=== PATIENT | male | born 1960 | race Caucasian/White ===

== ENCOUNTER 2016-12-01 10:06 | Outpatient (CLI) | payer MEDICARE ==
[2016-12-01 11:35] LABS: #Basophils 0.1 thou/uL (0.0-0.2); #Eosinphils 0.3 thou/uL (0.0-0.7); #Lymphocytes 2.8 thou/uL (1.20-3.40); #Monocytes 0.7 thou/uL (0.11-0.59); #Neutrophils 7.4 thou/uL (1.40-6.50); %Eosinophils 2.5 % (0.0-10.0); %Lymphocytes 25.1 % (21.0-51.0); %Neutrophils 65.3 % (42.0-75.0); Mean Corpuscular HGB CONC 32.9 g/dL (32.0-36.0); Mean Corpuscular Hemoglobin 27.8 pg (27.0-31.0); Mean Corpuscular Volume 84.4 fl (80.0-94.0); Mean Platelet Volume 8.3 fL (7.4-10.4); Platelet Count 272 thou/uL (130-400); RBC Distribution Width 13.1 % (11.5-14.5); Red Blood Cell (RBC) Count 6.11 mill/uL (4.70-6.10); White Blood Cell (WBC) Count 11.3 thou/uL (4.8-10.8)
[2016-12-01 11:44] LABS: ALT (SGPT) 11 U/L (0-55); AST (SGOT) 11 U/L (5-34); Albumin 4.1 g/dL (3.5-5.0); Alkaline Phosphatase 77 U/L (40-150); Anion Gap 14 mmol/L (10-20); BUN (Urea Nitrogen) 20 mg/dL (8.4-25.7); Bilirubin, Total 0.5 mg/dL (0.2-1.2); Calc. Creatinine Clearance 0 mL/min (70-130); Calcium 9.9 mg/dL (7.8-10.44); Carbon Dioxide 25 mmol/L (22-29); Cardiac Risk 5.9 (Less than 4.5); Chloride 101 mmol/L (98-107); Cholesterol 142 mg/dL (< 200 Desired); Estimated GFR-MDRD 45; Globulin 3.6 g/dL (2.4-3.5); Glucose 210 mg/dL (70-105); HDL Cholesterol 24 mg/dL (>60 Neg Risk); LDL Cholesterol, Calculated 75 mg/dL; Potassium 4.8 mmol/L (3.5-5.1); Protein, Total 7.7 g/dL (6.0-8.3); Sodium 135 mmol/L (136-145); Triglycerides 217 mg/dL (Less than 150)
[2016-12-01 11:50] LABS: Hemoglobin A1c 7.5 % (4.0-6.0)
== END 2016-12-01 10:07 | disposition home or self-care (01) ==
LOC: HPCALD 10:06
PROVIDERS: ATTEND Family Medicine
DX: Z12.5 Encounter for screening for malignant neoplasm of prostate (principal); Z13.6 Encounter for screening for cardiovascular disorders; E11.49 Type 2 diabetes mellitus with other diabetic neurological complication; I10 Essential (primary) hypertension
CPT/HCPCS: 36415; 80053; 80061; 83036; 85025; G0103

== ENCOUNTER 2017-03-02 10:00 | Outpatient (CLI) | payer MEDICARE ==
[2017-03-02 10:52] LABS: ALT (SGPT) 18 U/L (8-55); AST (SGOT) 22 U/L (5-34); Albumin 4.2 g/dL (3.5-5.0); Alkaline Phosphatase 69 U/L (40-150); Anion Gap 15 mmol/L (10-20); BUN (Urea Nitrogen) 25 mg/dL (8.4-25.7); Bilirubin, Total 0.5 mg/dL (0.2-1.2); Calc. Creatinine Clearance 0 mL/min (70-130); Calcium 9.4 mg/dL (7.8-10.44); Carbon Dioxide 24 mmol/L (22-29); Chloride 102 mmol/L (98-107); Estimated GFR-MDRD 49; Globulin 3.6 g/dL (2.4-3.5); Glucose 148 mg/dL (70-105); Potassium 5.3 mmol/L (3.5-5.1); Protein, Total 7.8 g/dL (6.0-8.3); Sodium 136 mmol/L (136-145)
[2017-03-02 11:14] LABS: #Basophils 0.2 thou/uL (0.0-0.2); #Eosinphils 0.4 thou/uL (0.0-0.7); #Lymphocytes 3.8 thou/uL (1.20-3.40); #Monocytes 0.8 thou/uL (0.11-0.59); #Neutrophils 7.4 thou/uL (1.40-6.50); %Basophils 1.2 % (0.0-1.0); %Eosinophils 3.2 % (0.0-10.0); %Lymphocytes 30.3 % (21.0-51.0); %Monocytes 6.2 % (0.0-10.0); Hemoglobin 16.6 g/dL (14.0-18.0); Mean Corpuscular HGB CONC 32.6 g/dL (32.0-36.0); Mean Corpuscular Hemoglobin 26.9 pg (27.0-31.0); Mean Corpuscular Volume 82.4 fl (80.0-94.0); Mean Platelet Volume 8.4 fL (7.4-10.4); Platelet Count 237 thou/uL (130-400); RBC Distribution Width 13.5 % (11.5-14.5); Red Blood Cell (RBC) Count 6.19 mill/uL (4.70-6.10); White Blood Cell (WBC) Count 12.5 thou/uL (4.8-10.8)
[2017-03-02 11:36] LABS: Hemoglobin A1c 7.9 % (4.0-6.0)
== END 2017-03-02 10:01 | disposition home or self-care (01) ==
LOC: HPCALD 10:00
PROVIDERS: ATTEND Family Medicine
DX: E11.49 Type 2 diabetes mellitus with other diabetic neurological complication (principal); I10 Essential (primary) hypertension
CPT/HCPCS: 36415; 80053; 83036; 85025

== ENCOUNTER 2018-01-22 06:51 | Inpatient (IN) | payer MEDICARE ==
[2018-01-22] MEDS ORDERED: Sodium Chloride 0.9% 100 ML ONE (07:22)
[2018-01-22] MEDS ORDERED: Piperacillin/Tazobactam 3.375 GM VIAL ONE (07:22)
[2018-01-22] MEDS ORDERED: Fentanyl 100 MCG/2 ML VIAL ONE (08:00)
[2018-01-22] MEDS ORDERED: Ketorolac Tromethamine 30 MG/ML VIAL ONE (08:00)
[2018-01-22 08:06] LABS: Hemoglobin 14.6 g/dL (14.0-18.0); Mean Corpuscular HGB CONC 34.8 g/dL (32.0-36.0); Mean Corpuscular Hemoglobin 27.1 pg (27.0-31.0); Mean Corpuscular Volume 77.7 fl (80.0-94.0); Mean Platelet Volume 7.8 fL (7.4-10.4); Platelet Count 232 thou/uL (130-400); RBC Distribution Width 12.3 % (11.5-14.5); Red Blood Cell (RBC) Count 5.39 mill/uL (4.70-6.10)
[2018-01-22 08:09] LABS: ALT (SGPT) 19 U/L (8-55); AST (SGOT) 15 U/L (5-34); Alkaline Phosphatase 59 U/L (40-150); Anion Gap 15 mmol/L (10-20); BUN (Urea Nitrogen) 22 mg/dL (8.4-25.7); Bilirubin, Total 1.1 mg/dL (0.2-1.2); Calc. Creatinine Clearance 0 mL/min (70-130); Calcium 9.5 mg/dL (7.8-10.44); Carbon Dioxide 23 mmol/L (22-29); Chloride 97 mmol/L (98-107); Estimated GFR-MDRD 38; Globulin 3.8 g/dL (2.4-3.5); Glucose 306 mg/dL (70-105); Potassium 4.2 mmol/L (3.5-5.1); Protein, Total 7.8 g/dL (6.0-8.3); Sodium 131 mmol/L (136-145)
[2018-01-22 08:12] LABS: Eosinophils 1 % (0-10); Lymphocytes 9 % (21-51); MDiff Complete? YES; Monocytes 7 % (0-10); Neutrophil 83 % (42-75); PLT Morphology Comment Appears Adequate; RBC Morphology Normal
[2018-01-22 10:56] VITALS: BMI 29.5
[2018-01-22] MEDS: Sodium Chloride 0.9% 1,000 ML IV SCH ×2 (11:09→18:13)
[2018-01-22] MEDS ORDERED: HYDROcodone/Acetaminophen 5/325 mg Tablet PO PRN (11:09)
[2018-01-22] MEDS ORDERED: Ondansetron ODT 4 MG TAB SL PRN (11:09)
[2018-01-22] MEDS ORDERED: Ondansetron HCl/PF 4 MG/2 ML Vial IVP PRN (11:09)
--- NOTE | 2018-01-22 11:27 | RAD ---
RIGHT FOOT THREE VIEWS: Date: 01-22-18 Comparison: 04-22-11 FINDINGS: There has been an old amputation of the great toe down to the level of the mid first metatarsal. The remaining first metatarsal shows no abnormality of concern. There are some nonarticular erosive mack es in particularly the second and fifth metatarsal heads. As there is a little bit of sclerosis aroun d these areas, I doubt that they are acute. There is a little irregularity of the third metatarsal he ad in a similar fashion, but not enough to confidently diagnose acute osteomyelitis. There were no ot her areas of bony destruction. IMPRESSION: Erosive changes in the second and fifth metatarsal heads and to a lesser extent the third. More likel y longstanding than not, though it should be pointed out that plain film diagnosis of osteomyelitis i s a relatively late in the process possibility. Other imaging modalities would be needed if it is str ongly suspected. POS: HOME
[2018-01-22] MEDS ORDERED: Dextrose 5% in Water 1,000 ML IV PRN (11:55)
[2018-01-22] MEDS ORDERED: Dextrose 50% Abboject 50 ML SYRINGE SLOW IVP PRN (11:55)
[2018-01-22] MEDS: Piperacillin/Tazobactam 3.375 GM in Sodium Chloride 0.9% 100 ML IVPB SCH ×2 (13:39→20:27)
[2018-01-22] MEDS: HumaLOG 300 UNITS/3 ML VIAL SC PRN ×2 (13:41→18:14)
[2018-01-22] MEDS: HYDROcodone/Acetaminophen 5/325 mg Tablet PO PRN ×2 (16:24→22:09)
--- NOTE | 2018-01-22 16:30 | HP ---
DATE OF ADMISSION: 01/22/2018 CHIEF COMPLAINT: Infection of right foot. HISTORY OF PRESENT ILLNESS: A 57-year-old male with poorly controlled diabetes presented to [facility] Emergency Department earlier today with complaints of developing swelling and erythema to his right foot as of yesterday, accompanied by chills; he denies having a fever. Upon inspection in the emergency room, an abrasion is noted to the plantar aspect of his right foot and subsequent lab evaluation revealing leukocytosis with white blood cell count of 22.0 with a left shift. The patient is unaware of how long he may have had this skin lesion secondary to the associated neuropathy he has from his diabetes. His most recent A1c in the clinical setting on 12/07/2017 was 10.8 at which time his insulin was increased and he was started on Victoza. In the emergency department, the patient was started on Zosyn empirically and intravenous fluids secondary to acute renal insufficiency. The patient denies having any significant pain at this time and feels to be in his usual state of health otherwise with no other new concerns. PAST MEDICAL HISTORY: Insulin-dependent type 2 diabetes mellitus with peripheral neuropathy, essential hypertension, hyperlipidemia, cataracts, gastroesophageal reflux disease. PAST SURGICAL HISTORY: Appendectomy, left and right great toes amputated in 2010, right hip fracture with right hip arthroplasty in 2013 and a prior knee surgery. SOCIAL HISTORY: The patient is a nonsmoker, but he does dip tobacco. Denies frequent ETOH use. Denies illicit drug use. ALLERGIES: No known drug allergies. FAMILY HISTORY: Noncontributory. CURRENT MEDICATIONS: Levemir 30 units b.i.d., Victoza 1.8 mg daily, omeprazole 40 mg p.o. daily, lisinopril/hydrochlorothiazide 20/12.5 mg p.o. daily, aspirin 81 mg p.o. daily, amlodipine 10 mg p.o. daily, metformin 1000 mg p.o. b.i.d. and glyburide 5 mg p.o. b.i.d. REVIEW OF SYSTEMS: General: Denies fever, complains of chills. Ear, Nose and Throat: Denies sore throat, congestion, and drainage. Cardiovascular: Denies chest pain or palpitations. Respiratory: Denies shortness of breath or cough. Gastrointestinal: Denies abdominal pain, nausea, vomiting, diarrhea or constipation. Genitourinary: Denies dysuria or hematuria. Musculoskeletal: Denies joint pain. Dermatologic: Complains of abrasion to the plantar aspect of right foot. Neurologic: Denies headache. LABORATORY DATA: White blood cell count of 22.0, H&H is 14.6 and 41.9, platelets 232. Sodium 131, potassium 4.2, BUN is 12, creatinine 1.87 with a GFR of 38, glucose 306. Lactic acid 1.5. Normal LFTs. IMAGING: Right foot x-ray showed erosive changes in the second and fifth metatarsal head and to a lesser extent, the third more likely longstanding, though it should be pointed out that plain film diagnosis of osteomyelitis is a relatively late in the process possibility. Other imaging modalities would be needed if it is strongly suspected. PHYSICAL EXAMINATION: VITAL SIGNS: Temperature is 98.3, pulse is 82, respiratory rate is 20, oxygen is 96% on room air, blood pressure is 128/79. GENERAL: The patient is alert and oriented, in no acute distress. FACE: No asymmetry. EYES: Conjunctivae are clear. Extraocular muscles are intact bilaterally. Cataracts bilaterally. HEENT: Within normal limits. Oral cavity has dry mucous membranes. NECK: Supple, full range of motion. No meningeal signs. CARDIOVASCULAR: Regular rate and rhythm, normal S1, S2. No murmurs, rubs or gallops. RESPIRATORY: Clear to auscultation bilaterally without wheezes, rales or rhonchi. GASTROINTESTINAL: Soft, nontender to palpation, no masses. EXTREMITIES: Right foot, status post great toe amputation; left foot, status post great toe amputation and second toe. It was approximately 3 cm vertical abrasion to the plantar aspect of the right foot anterior to the fifth toe. There is a peripheral IV to the right upper extremity. NEUROLOGIC: Nonfocal with cranial nerves II through XII grossly intact. He does have decreased sensation to bilateral feet. SKIN: There is erythema to the distal dorsum of the right foot with localized swelling and superficial warmth. ASSESSMENT AND PLAN: 1. Cellulitis of the right foot. Due to the x-ray findings, I have ordered an MRI to rule out osteomyelitis. He has been started on Zosyn empirically. Blood cultures and wound culture is pending. A repeat CBC is ordered for tomorrow. 2. Acute renal insufficiency. Patient has been started on normal saline at 150 mL an hour. We will continue this afternoon and overnight with plans to discontinue this tomorrow morning. I have held his metformin as well accordingly. 3. Insulin-dependent diabetes mellitus, poorly controlled. I have resumed his usual home medications other than the metformin and added a Humalog sliding scale. We will proceed with a consistent carbohydrate diet while he is here. We will have a.c. and at bedtime glucose checks. 4. Hypertension. The patient is hemodynamically stable with blood pressure at goal. We will resume his usual blood pressure medications. 5. Hyperlipidemia. We will add a stat patient's medication regimen. 6. Prophylaxis. We will continue patient's home proton pump inhibitor for gastrointestinal prophylaxis. MTDD
[2018-01-22] MEDS: glyBURIDE 5 MG TAB PO SCH (20:27)
[2018-01-22] MEDS: Pravastatin Sodium 20 MG TAB PO SCH (20:27)
[2018-01-22] MEDS: Levemir Flexpen 100 UNITS/ML PEN SC SCH (22:08)
[2018-01-23] MEDS: Sodium Chloride 0.9% 1,000 ML IV SCH ×2 (02:00→18:50)
[2018-01-23] MEDS: Piperacillin/Tazobactam 3.375 GM in Sodium Chloride 0.9% 100 ML IVPB SCH ×4 (02:01→20:20)
[2018-01-23] MEDS: HYDROcodone/Acetaminophen 5/325 mg Tablet PO PRN (05:01)
[2018-01-23 05:52] LABS: #Basophils 0.1 thou/uL (0.0-0.2); #Eosinphils 0.2 thou/uL (0.0-0.7); #Lymphocytes 2.4 thou/uL (1.20-3.40); #Monocytes 1.1 thou/uL (0.11-0.59); #Neutrophils 12.4 thou/uL (1.40-6.50); %Basophils 0.7 % (0.0-1.0); %Eosinophils 1.4 % (0.0-10.0); %Monocytes 6.8 % (0.0-10.0); %Neutrophils 76.1 % (42.0-75.0); Hemoglobin 11.7 g/dL (14.0-18.0); Mean Corpuscular HGB CONC 34.1 g/dL (32.0-36.0); Mean Corpuscular Hemoglobin 26.4 pg (27.0-31.0); Mean Corpuscular Volume 77.4 fl (80.0-94.0); Mean Platelet Volume 8.1 fL (7.4-10.4); Platelet Count 175 thou/uL (130-400); Red Blood Cell (RBC) Count 4.43 mill/uL (4.70-6.10); White Blood Cell (WBC) Count 16.2 thou/uL (4.8-10.8)
[2018-01-23 06:21] LABS: ALT (SGPT) 22 U/L (8-55); AST (SGOT) 20 U/L (5-34); Albumin 3.2 g/dL (3.5-5.0); Alkaline Phosphatase 62 U/L (40-150); Anion Gap 12 mmol/L (10-20); BUN (Urea Nitrogen) 22 mg/dL (8.4-25.7); Bilirubin, Total 1.1 mg/dL (0.2-1.2); Calc. Creatinine Clearance 80 mL/min (70-130); Calcium 8.2 mg/dL (7.8-10.44); Carbon Dioxide 22 mmol/L (22-29); Chloride 103 mmol/L (98-107); Estimated GFR-MDRD 47; Globulin 3.2 g/dL (2.4-3.5); Glucose 127 mg/dL (70-105); Potassium 3.9 mmol/L (3.5-5.1); Protein, Total 6.4 g/dL (6.0-8.3); Sodium 133 mmol/L (136-145)
[2018-01-23] MEDS: Hydrochlorothiazide 25 MG TAB PO SCH (08:27)
[2018-01-23] MEDS: Amlodipine 10 MG TAB PO SCH (08:27)
[2018-01-23] MEDS: Multivitamin W/ Minerals 1 TAB PO SCH (08:28)
[2018-01-23] MEDS: glyBURIDE 5 MG TAB PO SCH ×2 (08:29→20:20)
[2018-01-23] MEDS: Levemir Flexpen 100 UNITS/ML PEN SC SCH ×2 (08:32→20:23)
[2018-01-23] MEDS: Lisinopril 20 MG TAB PO SCH (08:32)
[2018-01-23] MEDS: Milk Of Magnesia 30 ML UDCUP PO PRN (11:36)
[2018-01-23] MEDS: HumaLOG 300 UNITS/3 ML VIAL SC PRN ×2 (12:42→17:28)
[2018-01-23] MEDS: Acetaminophen 325 MG TAB PO PRN (17:16)
[2018-01-23] MEDS: Pravastatin Sodium 20 MG TAB PO SCH (20:20)
[2018-01-24] MEDS: Piperacillin/Tazobactam 3.375 GM in Sodium Chloride 0.9% 100 ML IVPB SCH ×4 (02:04→22:44)
[2018-01-24 05:54] LABS: #Basophils 0.1 thou/uL (0.0-0.2); #Eosinphils 0.2 thou/uL (0.0-0.7); #Lymphocytes 2.1 thou/uL (1.20-3.40); #Monocytes 1.4 thou/uL (0.11-0.59); #Neutrophils 12.7 thou/uL (1.40-6.50); %Basophils 0.8 % (0.0-1.0); %Eosinophils 1.3 % (0.0-10.0); %Lymphocytes 12.9 % (21.0-51.0); %Monocytes 8.2 % (0.0-10.0); %Neutrophils 76.7 % (42.0-75.0); Hemoglobin 11.7 g/dL (14.0-18.0); Mean Corpuscular HGB CONC 35.2 g/dL (32.0-36.0); Mean Corpuscular Hemoglobin 27.1 pg (27.0-31.0); Mean Corpuscular Volume 76.9 fl (80.0-94.0); Mean Platelet Volume 7.6 fL (7.4-10.4); Platelet Count 203 thou/uL (130-400); Red Blood Cell (RBC) Count 4.33 mill/uL (4.70-6.10); White Blood Cell (WBC) Count 16.6 thou/uL (4.8-10.8)
[2018-01-24 06:11] LABS: ALT (SGPT) 31 U/L (8-55); AST (SGOT) 27 U/L (5-34); Albumin 3.1 g/dL (3.5-5.0); Alkaline Phosphatase 82 U/L (40-150); Anion Gap 14 mmol/L (10-20); BUN (Urea Nitrogen) 17 mg/dL (8.4-25.7); Bilirubin, Total 1.1 mg/dL (0.2-1.2); Calc. Creatinine Clearance 77 mL/min (70-130); Calcium 8.4 mg/dL (7.8-10.44); Carbon Dioxide 22 mmol/L (22-29); Chloride 101 mmol/L (98-107); Estimated GFR-MDRD 44; Globulin 3.2 g/dL (2.4-3.5); Glucose 98 mg/dL (70-105); Potassium 3.9 mmol/L (3.5-5.1); Protein, Total 6.3 g/dL (6.0-8.3); Sodium 133 mmol/L (136-145)
[2018-01-24] MEDS: Milk Of Magnesia 30 ML UDCUP PO PRN (08:10)
[2018-01-24] MEDS: Acetaminophen 325 MG TAB PO PRN (08:15)
[2018-01-24] MEDS: Hydrochlorothiazide 25 MG TAB PO SCH (08:16)
[2018-01-24] MEDS: glyBURIDE 5 MG TAB PO SCH ×2 (08:16→20:37)
[2018-01-24] MEDS: Lisinopril 20 MG TAB PO SCH (08:18)
[2018-01-24] MEDS: Amlodipine 10 MG TAB PO SCH (08:19)
[2018-01-24] MEDS: Multivitamin W/ Minerals 1 TAB PO SCH (08:20)
[2018-01-24] MEDS: Levemir Flexpen 100 UNITS/ML PEN SC SCH ×2 (08:21→20:37)
[2018-01-24] MEDS: Senokot 8.6 MG TAB PO PRN ×2 (12:26→20:50)
[2018-01-24] MEDS: HumaLOG 300 UNITS/3 ML VIAL SC PRN ×3 (12:26→20:55)
[2018-01-24] MEDS: HYDROcodone/Acetaminophen 5/325 mg Tablet PO PRN (18:24)
[2018-01-24] MEDS: Vancomycin HCl 750 MG in Sodium Chloride 0.9% 250 ML 250 ML IVPB SCH ×2 (20:36→21:38)
[2018-01-24] MEDS: Pravastatin Sodium 20 MG TAB PO SCH (20:36)
[2018-01-24] MEDS ORDERED: Vancomycin HCl 1.5 GM in Sodium Chloride 0.9% 250 ML 300 ML IVPB SCH (21:00)
[2018-01-24] MEDS ORDERED: Artificial Tear Sol 15 ML BOT EA EYE PRN (21:33)
[2018-01-24] MEDS ORDERED: VANCOMYCIN IVPB PRN (21:46)
[2018-01-25] MEDS: Piperacillin/Tazobactam 3.375 GM in Sodium Chloride 0.9% 100 ML IVPB SCH (03:56)
[2018-01-25] MEDS: HYDROcodone/Acetaminophen 5/325 mg Tablet PO PRN (05:41)
[2018-01-25 06:13] VITALS: BP 122/64
[2018-01-25 06:33] LABS: #Basophils 0.1 thou/uL (0.0-0.2); #Eosinphils 0.1 thou/uL (0.0-0.7); #Lymphocytes 1.6 thou/uL (1.20-3.40); #Monocytes 1.5 thou/uL (0.11-0.59); #Neutrophils 14.4 thou/uL (1.40-6.50); %Basophils 0.8 % (0.0-1.0); %Eosinophils 0.3 % (0.0-10.0); %Lymphocytes 8.8 % (21.0-51.0); %Monocytes 8.4 % (0.0-10.0); %Neutrophils 81.7 % (42.0-75.0); Hemoglobin 11.8 g/dL (14.0-18.0); Mean Corpuscular HGB CONC 36.1 g/dL (32.0-36.0); Mean Corpuscular Hemoglobin 27.7 pg (27.0-31.0); Mean Corpuscular Volume 76.8 fl (80.0-94.0); Mean Platelet Volume 7.6 fL (7.4-10.4); Platelet Count 238 thou/uL (130-400); RBC Distribution Width 11.8 % (11.5-14.5); Red Blood Cell (RBC) Count 4.26 mill/uL (4.70-6.10); White Blood Cell (WBC) Count 17.6 thou/uL (4.8-10.8)
[2018-01-25 06:59] LABS: ALT (SGPT) 36 U/L (8-55); AST (SGOT) 26 U/L (5-34); Albumin 3.2 g/dL (3.5-5.0); Alkaline Phosphatase 100 U/L (40-150); Anion Gap 17 mmol/L (10-20); BUN (Urea Nitrogen) 15 mg/dL (8.4-25.7); Bilirubin, Total 1.2 mg/dL (0.2-1.2); Calc. Creatinine Clearance 72 mL/min (70-130); Calcium 8.2 mg/dL (7.8-10.44); Carbon Dioxide 22 mmol/L (22-29); Chloride 99 mmol/L (98-107); Estimated GFR-MDRD 41; Glucose 110 mg/dL (70-105); Potassium 4.1 mmol/L (3.5-5.1); Protein, Total 6.2 g/dL (6.0-8.3); Sodium 134 mmol/L (136-145)
[2018-01-25] MEDS: Vancomycin HCl 750 MG in Sodium Chloride 0.9% 250 ML 250 ML IVPB SCH ×2 (08:20→10:44)
[2018-01-25] MEDS: Hydrochlorothiazide 25 MG TAB PO SCH (08:28)
[2018-01-25] MEDS: Amlodipine 10 MG TAB PO SCH (08:28)
[2018-01-25] MEDS: Milk Of Magnesia 30 ML UDCUP PO PRN (08:28)
[2018-01-25] MEDS: Senokot 8.6 MG TAB PO PRN (08:28)
[2018-01-25] MEDS: Multivitamin W/ Minerals 1 TAB PO SCH (08:29)
[2018-01-25] MEDS: glyBURIDE 5 MG TAB PO SCH (08:29)
[2018-01-25] MEDS: Bisacodyl 10 MG SUPP PR PRN ×2 (08:29→08:36)
[2018-01-25] MEDS: Lisinopril 20 MG TAB PO SCH (08:29)
--- NOTE | 2018-01-25 08:31 | DIS ---
DATE OF ADMISSION: 01/22/2018 DATE OF DISCHARGE FROM ACUTE INPATIENT TO SWING STATUS: 01/25/2018 ADMISSION DIAGNOSES: Cellulitis of the right foot, acute renal insufficiency. SECONDARY DIAGNOSES: Insulin-dependent diabetes mellitus, hypertension, hyperlipidemia; constipation PROCEDURES: On 01/22/2018, right foot x-ray shows erosive changes in the second and fifth metatarsal head and to a lesser extent of third more likely longstanding, though it should be pointed out the plain film diagnosis of osteomyelitis is relatively late in the process possibility. Other imaging modalities would be needed if it is strongly suspected. HOSPITAL COURSE: A 57-year-old male with poorly controlled insulin-dependent diabetes mellitus who presented to [facility] with a 1-day history of swelling and erythema to the right foot with chills and no reported fever. Inspection showed an open abrasion to the plantar aspect of the right foot anterior to the 5th phalange. The patient has diabetic neuropathy and is unsure of how long this wound has been present. Initial lab work showed leukocytosis of 22 with a left shift and he was admitted to the floor and empirically started on IV Zosyn. His initial white count trended down to 16.2; however, has not improved further since that time. Preliminary reading of wound culture revealed Staph aureus and thus vancomycin was added yesterday. As of this morning, his culture revealed sensitivities which unfortunately showed resistance to piperacillin, therefore, the Zosyn has been discontinued and IV Levaquin has been added in addition to the vancomycin that was started yesterday. He has remained afebrile; however, has had temperatures rising to the level of 99.9 on the floor. Other vitals have remained within normal limits. He does report to be feeling a little bit better since the vancomycin was started yesterday. Of note, this morning, there is a noted draining lesion to the web spacing between the 4th and 5th phalanges of the right foot with serosanguineous fluid. An MRI has been ordered to rule out osteomyelitis; however, as of this time it is unable to be obtained until of this week , 01/28/2018. One secondary issue that the patient has been experiencing is constipation. Thus, a bowel regimen has been added DISPOSITION: The patient will discharge from acute inpatient status to swing bed status. DISCHARGE MEDICATIONS: Tylenol 650 mg p.o. q.4 hours p.r.n., amlodipine 10 mg p.o. daily, Artificial Tears p.r.n., aspirin 81 mg p.o. daily, Dulcolax per rectum 10 mg daily p.r.n., glyburide 5 mg p.o. b.i.d., Humalog sliding scale, hydrochlorothiazide 25 mg p.o. daily, hydrocodone 5/325 q.6 hours p.r.n., Levemir 30 units subcutaneously b.i.d., Victoza 1.8 mg subcutaneously daily, lisinopril 20 mg p.o. daily, magnesium hydroxide 30 mL p.o. daily p.r.n., daily multivitamin, Zofran 4 mg sublingual q.6 hours p.r.n., Protonix 40 mg p.o. daily , pravastatin 20 mg p.o. at bedtime, Florastor 250 mg p.o. daily, Senokot 1 tab p.o. at bedtime p.r.n., vancomycin 750 mg IV q.12 hours., and Levofloxacin 750 mg IV q.24 hours. MTDD
[2018-01-25] MEDS: HumaLOG 300 UNITS/3 ML VIAL SC PRN ×2 (08:37→13:09)
[2018-01-25] MEDS: Levemir Flexpen 100 UNITS/ML PEN SC SCH (08:37)
[2018-01-25] MEDS ORDERED: Saccharomyces boulardii 250 MG CAP PO SCH (09:00)
[2018-01-25 10:44] VITALS: TEMP 99
== END 2018-01-25 15:23 | disposition swing bed (61) | DRG 638 ==
LOC: BURERS 06:51 → UNDOADMIN 09:32 → BURMED 09:32
PROVIDERS: ADMIT Family Medicine; ATTEND Family Medicine
DX: E11.621 Type 2 diabetes mellitus with foot ulcer (principal); L03.115 Cellulitis of right lower limb; L97.419 Non-pressure chronic ulcer of right heel and midfoot with unspecified severity; N28.9 Disorder of kidney and ureter, unspecified; E11.65 Type 2 diabetes mellitus with hyperglycemia; E11.42 Type 2 diabetes mellitus with diabetic polyneuropathy; Z79.84 Long term (current) use of oral hypoglycemic drugs; E78.5 Hyperlipidemia, unspecified; K21.9 Gastro-esophageal reflux disease without esophagitis; Z89.412 Acquired absence of left great toe; Z89.411 Acquired absence of right great toe; Z72.0 Tobacco use; L03.031 Cellulitis of right toe; B95.61 Methicillin susceptible Staphylococcus aureus infection as the cause of diseases classified elsewhere; K59.00 Constipation, unspecified; E11.22 Type 2 diabetes mellitus with diabetic chronic kidney disease; I12.9 Hypertensive chronic kidney disease with stage 1 through stage 4 chronic kidney disease, or unspecified chronic kidney disease; N18.3 Chronic kidney disease, stage 3 (moderate)
CPT/HCPCS: 36415; 36416; 80053; 83605; 85025; 87040; 87070; 87077; 87186; 87205; 96361; 96365; 96375; A4216; J1815; J1885; J1956; J2543; J3010; J3370; J7050

== ENCOUNTER 2018-01-25 08:22 | Inpatient (IN) | payer MEDICARE ==
[2018-01-25] MEDS ORDERED: Acetaminophen 325 MG TAB PO PRN (16:51)
[2018-01-25] MEDS ORDERED: Ondansetron ODT 4 MG TAB SL PRN (16:51)
[2018-01-25] MEDS ORDERED: Ondansetron HCl/PF 4 MG/2 ML Vial IVP PRN (16:51)
[2018-01-25] MEDS ORDERED: HYDROcodone/Acetaminophen 5/325 mg Tablet PO PRN (16:52)
[2018-01-25] MEDS ORDERED: Milk Of Magnesia 30 ML UDCUP PO PRN (16:54)
[2018-01-25] MEDS ORDERED: Dextrose 50% Abboject 50 ML SYRINGE SLOW IVP PRN (16:54)
[2018-01-25] MEDS ORDERED: HumaLOG 300 UNITS/3 ML VIAL SC PRN (16:54)
[2018-01-25] MEDS ORDERED: Dextrose 5% in Water 1,000 ML IV PRN (16:54)
[2018-01-25] MEDS ORDERED: Bisacodyl 10 MG SUPP PR PRN (16:55)
[2018-01-25] MEDS ORDERED: Senokot 8.6 MG TAB PO PRN (16:55)
[2018-01-25] MEDS ORDERED: Artificial Tear Sol 15 ML BOT EA EYE PRN (16:57)
[2018-01-25] MEDS ORDERED: VANCOMYCIN IVPB PRN (16:57)
[2018-01-25] MEDS: HYDROcodone/Acetaminophen 5/325 mg Tablet PO PRN (17:06)
[2018-01-25 17:07] VITALS: BMI 31.5
[2018-01-25] MEDS: glyBURIDE 5 MG TAB PO SCH (20:22)
[2018-01-25] MEDS: Vancomycin HCl 750 MG in Sodium Chloride 0.9% 250 ML 250 ML IVPB SCH (20:23)
[2018-01-25] MEDS: Levemir Flexpen 100 UNITS/ML PEN SC SCH (20:31)
[2018-01-25] MEDS ORDERED: Vancomycin HCl 750 MG in Sodium Chloride 0.9% 250 ML 250 ML IVPB SCH (21:00)
[2018-01-25] MEDS ORDERED: Pravastatin Sodium 20 MG TAB PO SCH (21:00)
[2018-01-26] MEDS: HYDROcodone/Acetaminophen 5/325 mg Tablet PO PRN ×2 (00:20→06:47)
[2018-01-26 06:51] VITALS: BP 134/82; TEMP 98.3
[2018-01-26 06:59] LABS: #Basophils 0.1 thou/uL (0.0-0.2); #Eosinphils 0.4 thou/uL (0.0-0.7); #Lymphocytes 2.6 thou/uL (1.20-3.40); #Monocytes 1.7 thou/uL (0.11-0.59); #Neutrophils 12.4 thou/uL (1.40-6.50); %Basophils 0.7 % (0.0-1.0); %Eosinophils 2.1 % (0.0-10.0); %Lymphocytes 14.9 % (21.0-51.0); %Monocytes 9.8 % (0.0-10.0); %Neutrophils 72.4 % (42.0-75.0); Hemoglobin 12.6 g/dL (14.0-18.0); Mean Corpuscular HGB CONC 34.1 g/dL (32.0-36.0); Mean Corpuscular Hemoglobin 26.6 pg (27.0-31.0); Mean Corpuscular Volume 78.1 fl (80.0-94.0); Mean Platelet Volume 7.4 fL (7.4-10.4); Platelet Count 248 thou/uL (130-400); RBC Distribution Width 12.5 % (11.5-14.5); Red Blood Cell (RBC) Count 4.73 mill/uL (4.70-6.10); White Blood Cell (WBC) Count 17.1 thou/uL (4.8-10.8)
[2018-01-26 07:09] LABS: ALT (SGPT) 30 U/L (8-55); AST (SGOT) 27 U/L (5-34); Albumin 3.2 g/dL (3.5-5.0); Alkaline Phosphatase 104 U/L (40-150); Anion Gap 13 mmol/L (10-20); BUN (Urea Nitrogen) 16 mg/dL (8.4-25.7); Bilirubin, Total 0.7 mg/dL (0.2-1.2); Calc. Creatinine Clearance 82 mL/min (70-130); Calcium 8.8 mg/dL (7.8-10.44); Carbon Dioxide 22 mmol/L (22-29); Chloride 100 mmol/L (98-107); Estimated GFR-MDRD 45; Globulin 3.6 g/dL (2.4-3.5); Glucose 113 mg/dL (70-105); Potassium 4.3 mmol/L (3.5-5.1); Protein, Total 6.8 g/dL (6.0-8.3); Sodium 131 mmol/L (136-145)
[2018-01-26 07:26] LABS: Vancomycin, Trough 18.8 ug/mL
[2018-01-26] MEDS: glyBURIDE 5 MG TAB PO SCH (08:44)
[2018-01-26] MEDS: Vancomycin HCl 750 MG in Sodium Chloride 0.9% 250 ML 250 ML IVPB SCH (08:45)
[2018-01-26] MEDS: Levemir Flexpen 100 UNITS/ML PEN SC SCH (08:51)
[2018-01-26] MEDS ORDERED: Hydrochlorothiazide 25 MG TAB PO SCH (09:00)
[2018-01-26] MEDS ORDERED: Lisinopril 20 MG TAB PO SCH (09:00)
[2018-01-26] MEDS ORDERED: Multivitamin W/ Minerals 1 TAB PO SCH (09:00)
[2018-01-26] MEDS ORDERED: Fluticasone Propionate Nasal Spray 16 gm Bottle NASAL SCH (09:00)
[2018-01-26] MEDS ORDERED: Triple Antibiotic Oint 1 GM Packet TOP SCH (09:00)
[2018-01-26] MEDS ORDERED: Amlodipine 10 MG TAB PO SCH (09:00)
[2018-01-26] MEDS ORDERED: Saccharomyces boulardii 250 MG CAP PO SCH (09:00)
--- NOTE | 2018-01-26 12:41 | DIS ---
DATE OF ADMISSION: 01/22/2018 DATE OF DISCHARGE: From [facility] to [facility], 01/26/2018. ADMISSION DIAGNOSES: Cellulitis of the right foot and acute renal insufficiency. SECONDARY DIAGNOSES: Insulin-dependent diabetes mellitus, hypertension, hyperlipidemia and constipat ion. PROCEDURES: On 01/22/2018, right foot x-ray, erosive changes in the second and fifth metatarsal head and to a lesser extent of third, more likely longstanding, though it should be pointed out plain kendrick m diagnosis of osteomyelitis is relatively late in the process possibility. Other imaging modalities would be needed if it is strongly suspected. HOSPITAL COURSE: A 57-year-old male with poorly controlled insulin-dependent diabetes mellitus and h istory of toe amputation and peripheral neuropathy, presented to [facility] Department wi th a 1-day history of swelling and erythema to the right foot. Inspection of his foot showed an shaina rosetta to the plantar aspect of the right foot anterior to the 5th phalange. The patient was unable to identify how long this wound has been present. Initial lab work showed leukocytosis of 22 with a le ft shift and he was admitted to the floor and started on IV Zosyn empirically. His white count impro diana to 16.2 the next day, but stagnated thereafter. His preliminary wound culture revealed Staph aur eus and vancomycin was added. Once the culture revealed sensitivities, this showed resistance to pip eracillin. Therefore, the Zosyn was discontinued and IV Levaquin was added in conjunction with the v ancomycin. The patient has developed draining lesion between the web spacing of his fourth and fifth phalanges of the right foot with serosanguineous fluid. MRI has been ordered since his initial admi ssion; however, this was unfortunately unable to be scheduled until of this week; however, h e was rescheduled to have this done this afternoon at 1530. Secondary to the patient's history regar ding prior toe amputation and now draining lesion, I consulted Dr. De La Vega, general surgeon, who has a greed to accept the patient under his care on the surgical floor at [facility] where he will likely need surgical intervention. The patient has remained afebrile on the floor with a T-max of 99.9 as of a couple of days ago. His white blood cell count is currently 17 and of note the patie nt's typical white blood cell count is on the high side of normal, usually ranging between 10 and 12. DISCHARGE DISPOSITION: The patient will discharge from [facility] to [facility] in [facility] under the care of Dr. De La Vega. DISCHARGE MEDICATIONS: Levaquin 750 mg IV daily, vancomycin 750 mg IV q.12 hours, Tylenol 650 mg p.o . q.4 hours p.r.n., amlodipine 10 mg p.o. daily, Artificial Tears p.r.n., aspirin 81 mg p.o. daily, D ulcolax per rectum 10 mg daily p.r.n., glyburide 5 mg p.o. b.i.d., Humalog sliding scale, hydrochloro thiazide 25 mg p.o. daily, hydrocodone 5/325 q.6 hours p.r.n., Levemir 30 units subcutaneously b.i.d. , Victoza 1.8 mg subcutaneously daily, lisinopril 20 mg p.o. daily, magnesium hydroxide 30 mL p.o. da sarthak p.r.n., multivitamin daily, Zofran 4 mg sublingual q.6 hours p.r.n., Protonix 40 mg p.o. daily, p ravastatin 20 mg p.o. at bedtime, Florastor 250 mg p.o. daily, Senokot 1 tab p.o. at bedtime p.r.n. The patient's metformin has been held secondary to his elevated creatinine level ranging between 1.5 and 1.8.
== END 2018-01-26 11:36 | disposition short-term general hospital (02) | DRG 638 ==
LOC: BURMED 15:23
PROVIDERS: ADMIT Family Medicine; ATTEND Family Medicine
DX: E11.621 Type 2 diabetes mellitus with foot ulcer (principal); L03.115 Cellulitis of right lower limb; L97.519 Non-pressure chronic ulcer of other part of right foot with unspecified severity; Z79.84 Long term (current) use of oral hypoglycemic drugs; I11.0 Hypertensive heart disease with heart failure; E78.5 Hyperlipidemia, unspecified; K59.00 Constipation, unspecified; E11.65 Type 2 diabetes mellitus with hyperglycemia; E11.42 Type 2 diabetes mellitus with diabetic polyneuropathy; Z79.82 Long term (current) use of aspirin; N28.9 Disorder of kidney and ureter, unspecified; K21.9 Gastro-esophageal reflux disease without esophagitis
CPT/HCPCS: 36415; 36416; 80053; 80202; 85025; A4216; J3370; J7050

== ENCOUNTER 2019-10-27 09:34 | Outpatient (CLI) | payer MEDICARE ==
[2019-10-27 10:06] LABS: #Basophils 0.1 thou/uL (0.0-0.2); #Eosinphils 0.7 thou/uL (0.0-0.7); #Monocytes 0.7 thou/uL (0.11-0.59); #Neutrophils 6.5 thou/uL (1.40-6.50); %Basophils 0.9 % (0.0-1.0); %Eosinophils 6.3 % (0.0-10.0); %Lymphocytes 27.1 % (21.0-51.0); %Monocytes 6.4 % (0.0-10.0); %Neutrophils 59.3 % (42.0-75.0); Mean Corpuscular HGB CONC 31.3 g/dL (32.0-36.0); Mean Corpuscular Hemoglobin 23.5 pg (27.0-31.0); Mean Platelet Volume 8.2 fL (7.4-10.4); Platelet Count 281 thou/uL (130-400); RBC Distribution Width 15.7 % (11.5-14.5); Red Blood Cell (RBC) Count 5.53 mill/uL (4.70-6.10)
[2019-10-27 10:30] LABS: Anisocytosis SLIGHT = 6-15 cells (100X) (0-5/hpf); MDiff Complete? YES; Microcytosis SLIGHT = 6-15 cells (100X) (0-5/hpf); Platelet Morphology Comment Appears Adequate
--- NOTE | 2019-10-27 21:00 | RAD ---
LEFT FOOT TWO VIEWS: 10/27/19 Comparison is made with the 06/22/19 study. There has apparently been resection of the fifth metatarsal and toe in the interval. I see what appea rs to be a remainder of the base of the fifth metatarsal (tuberosity). There is bony density where th e fifth metatarsal shaft used to be that may just be myositis. There is considerable bony overgrowth of the distal third metatarsal today, even more so than before. Only the third and fourth toes remain . There is considerable swelling in the forefoot today. It is difficult to accurately assess the bone around what appears to be the remaining base of the fifth metatarsal. I cannot rule out infection in this location. IMPRESSION: Postoperative changes and soft tissue swelling is noted. What appears to be residual of the base of t he fifth metatarsal is present but perhaps a little lucent. I cannot exclude infection in this locati on. POS: HOME
== END 2019-10-27 09:35 | disposition home or self-care (01) ==
LOC: BURRAD 09:34
PROVIDERS: ATTEND Internal Medicine Infectious Disease
DX: M86.272 Subacute osteomyelitis, left ankle and foot (principal); M79.89 Other specified soft tissue disorders; Z98.890 Other specified postprocedural states
CPT/HCPCS: 85025; 86140

== ENCOUNTER 2021-08-24 18:28 | Emergency (ER) | payer MEDICARE ==
[2021-08-24] MEDS ORDERED: Lidocaine 1% PF 5 ML VIAL ONE (18:51)
[2021-08-24] MEDS ORDERED: Boostrix 0.5 ML (Tdap) VIAL ONE (19:32)
== END 2021-08-24 19:38 | disposition home or self-care (01) ==
LOC: BURERS 18:28
DX: S01.01XA Laceration without foreign body of scalp, initial encounter (principal); S01.312A Laceration without foreign body of left ear, initial encounter; Z23 Encounter for immunization; W01.198A Fall on same level from slipping, tripping and stumbling with subsequent striking against other object, initial encounter; I10 Essential (primary) hypertension; E11.9 Type 2 diabetes mellitus without complications
CPT/HCPCS: 12002; 12011; 90471; 90715

== ENCOUNTER 2022-05-20 13:36 | Emergency (ER) | payer MEDICARE ==
[2022-05-20 14:47] LABS: #Basophils 0.1 thou/uL (0.0-0.2); #Eosinphils 0.5 thou/uL (0.0-0.7); #Lymphocytes 1.4 thou/uL (1.20-3.40); #Monocytes 0.9 thou/uL (0.11-0.59); #Neutrophils 9.7 thou/uL (1.40-6.50); %Basophils 0.8 % (0.0-1.0); %Eosinophils 3.9 % (0.0-10.0); %Lymphocytes 10.9 % (21.0-51.0); %Monocytes 7.4 % (0.0-10.0); %Neutrophils 76.9 % (42.0-75.0); Hemoglobin 12.5 g/dL (14.0-18.0); Mean Corpuscular HGB CONC 34.2 g/dL (32.0-36.0); Mean Corpuscular Hemoglobin 27.6 pg (27.0-31.0); Mean Corpuscular Volume 80.6 fL (78.0-98.0); Platelet Count 257 thou/uL (130-400); RBC Distribution Width 13.2 % (11.5-14.5); Red Blood Cell (RBC) Count 4.53 mill/uL (4.70-6.10); White Blood Cell (WBC) Count 12.7 thou/uL (4.8-10.8)
[2022-05-20 14:55] LABS: ALT (SGPT) 37 U/L (8-55); AST (SGOT) 32 U/L (5-34); Albumin 3.8 g/dL (3.5-5.0); Alkaline Phosphatase 86 U/L (40-110); Anion Gap 14 mmol/L (10-20); BUN (Urea Nitrogen) 47 mg/dL (8.4-25.7); Bilirubin, Total 0.5 mg/dL (0.2-1.2); Calc. Creatinine Clearance 0 mL/min (70-130); Calcium 8.6 mg/dL (7.8-10.44); Carbon Dioxide 18 mmol/L (22-29); Chloride 108 mmol/L (98-107); Estimated GFR 20; Globulin 3.7 g/dL (2.4-3.5); Glucose 272 mg/dL (70-105); Potassium 5.4 mmol/L (3.5-5.1); Protein, Total 7.5 g/dL (6.0-8.3); Sodium 135 mmol/L (136-145)
[2022-05-20 15:04] LABS: Base Excess-Venous -6.1 mmol/L (-2.0 to 3.0); Bicarbonate (HCO3v) 17.7 mmol/L (22.0-28.0); CO2 Tension (PvCO2) 29.3 mmHg (42.0-51.0); Calcium, Ionized 1.04 mmol/L (1.15-1.33); Chloride 107 mmol/L (98-107); Hemoglobin - Calc 12.9 g/dL (14.0-18.0); Potassium 5.4 mmol/L (3.5-5.1); Sodium 137 mmol/L (138-145); T. Carbon Dioxide 18.6 mmol/L (22.0-28.0); vO2 Saturation-calc 94.4 % (60.0-85.0)
[2022-05-20 15:35] LABS: SARS-CoV-2 NAA Rapid Test Not Detected (NotDetected)
[2022-05-20] MEDS ORDERED: Albuterol Sulfate 2.5 mg/3 ml Neb ONE (15:52)
[2022-05-20] MEDS ORDERED: cefTRIAXone\\ROCEPHIN 2 GM VIAL ONE (15:52)
== END 2022-05-20 20:57 | disposition short-term general hospital (02) ==
LOC: BURERS 13:36
DX: N17.9 Acute kidney failure, unspecified (principal); E87.5 Hyperkalemia; E87.70 Fluid overload, unspecified; I10 Essential (primary) hypertension; E11.9 Type 2 diabetes mellitus without complications; Z20.822 Contact with and (suspected) exposure to COVID-19
CPT/HCPCS: 0240U; 71045; 80053; 82330; 82435; 82803; 83880; 84132; 84295; 84484; 85014; 85025; 87040; 93005; 94640 ×2; 94760; 96365; 99285; J0696; J7611; J7620

== ENCOUNTER 2022-08-03 06:11 | Emergency (ER) | payer MEDICARE ==
[2022-08-03 06:43] LABS: #Basophils 0.1 thou/uL (0.0-0.2); #Eosinphils 0.7 thou/uL (0.0-0.7); #Lymphocytes 2.5 thou/uL (1.20-3.40); #Neutrophils 8.7 thou/uL (1.40-6.50); %Basophils 0.8 % (0.0-1.0); %Eosinophils 5.4 % (0.0-10.0); %Lymphocytes 19.3 % (21.0-51.0); %Monocytes 7.7 % (0.0-10.0); %Neutrophils 66.8 % (42.0-75.0); Hemoglobin 13.3 g/dL (14.0-18.0); Mean Corpuscular HGB CONC 32.7 g/dL (32.0-36.0); Mean Corpuscular Volume 79.5 fl (78.0-98.0); Mean Platelet Volume 9.4 fL (7.4-10.4); Platelet Count 275 10x3/uL (130-400); RBC Distribution Width 12.3 % (11.5-14.5)
[2022-08-03 06:59] LABS: ALT (SGPT) 15 U/L (8-55); AST (SGOT) 11 U/L (5-34); Albumin 3.1 g/dL (3.4-4.8); Alkaline Phosphatase 82 U/L (40-110); Anion Gap 14 mmol/L (10-20); BUN (Urea Nitrogen) 37 mg/dL (8.4-25.7); Bilirubin, Total 0.3 mg/dL (0.2-1.2); Calc. Creatinine Clearance 0 mL/min (70-130); Calcium 8.5 mg/dL (7.8-10.44); Carbon Dioxide 22 mmol/L (23-31); Chloride 103 mmol/L (98-107); Estimated GFR 17; Globulin 3.6 g/dL (2.4-3.5); Glucose 179 mg/dL (80-115); Protein, Total 6.7 g/dL (5.8-8.1); Sodium 135 mmol/L (136-145)
[2022-08-03 08:02] LABS: Base Excess-Venous -2.1 mmol/L (-2.0 to 3.0); Bicarbonate (HCO3v) 23.8 mmol/L (22.0-28.0); CO2 Tension (PvCO2) 43.4 mmHg (42.0-51.0); Calcium, Ionized 1.09 mmol/L (1.15-1.33); Chloride 104 mmol/L (98-107); Hemoglobin - Calc 15.3 g/dL (14.0-18.0); Potassium 3.9 mmol/L (3.5-5.1); Sodium 138 mmol/L (138-145); T. Carbon Dioxide 25.1 mmol/L (22.0-28.0); vO2 Saturation-calc 99.7 % (60.0-85.0)
[2022-08-03 08:02] LABS: Bilirubin Negative (Negative); Blood, Urine Small (Negative); Clarity Clear (Clear); Glucose, Urine (Dipstick) 500 mg/dL (Negative); Ketone, Urine Negative (Negative); Leukocyte Negative (Negative); Nitrite Negative (Negative); Protein, Urine (Dipstick) > or equal to 300 mg/dL (Neg-Trace); Urobilinogen 0.2 mg/dL (Less than 2)
[2022-08-03 08:08] LABS: Bacteria/HPF None Seen HPF (None Seen); RBC/HPF 0-3 HPF (0-3); Squamous Epithelial None Seen HPF (0-3); WBC/HPF None Seen HPF (0-3)
== END 2022-08-03 09:19 | disposition home or self-care (01) ==
LOC: BURERS 06:11
DX: E11.65 Type 2 diabetes mellitus with hyperglycemia (principal); I10 Essential (primary) hypertension; Z87.891 Personal history of nicotine dependence
CPT/HCPCS: 36416; 80053; 81003; 81015; 82330; 82803; 83605; 83735; 85025; 99284; 36415-59

== ENCOUNTER 2022-11-04 10:01 | Emergency (ER) | payer MEDICARE ==
[2022-11-04] MEDS ORDERED: Ipratropium/Albuterol 3 ML NEB ONE ×2 (10:20→13:16)
[2022-11-04 10:43] LABS: #Basophils 0.1 thou/uL (0.0-0.2); #Eosinphils 0.1 thou/uL (0.0-0.7); #Lymphocytes 1.1 thou/uL (1.20-3.40); #Monocytes 1.1 thou/uL (0.11-0.59); #Neutrophils 13.5 thou/uL (1.40-6.50); %Basophils 0.8 % (0.0-1.0); %Eosinophils 0.6 % (0.0-10.0); %Lymphocytes 6.9 % (21.0-51.0); %Monocytes 6.8 % (0.0-10.0); Hemoglobin 12.8 g/dL (14.0-18.0); Mean Corpuscular HGB CONC 33.3 g/dL (32.0-36.0); Mean Corpuscular Hemoglobin 25.6 pg (27.0-31.0); Mean Corpuscular Volume 77.1 fl (78.0-98.0); Mean Platelet Volume 8.3 fL (7.4-10.4); Platelet Count 278 10x3/uL (130-400); RBC Distribution Width 14.4 % (11.5-14.5); White Blood Cell (WBC) Count 15.8 10x3/uL (4.8-10.8)
[2022-11-04 11:00] LABS: CO2 Tension (PvCO2) 32.9 mmHg (42.0-51.0); Calcium, Ionized 0.96 mmol/L (1.15-1.33); Chloride 103 mmol/L (98-107); Hemoglobin - Calc 13.9 g/dL (14.0-18.0); Potassium 4.4 mmol/L (3.5-5.1); Sodium 134 mmol/L (138-145); vO2 Saturation-calc 93.7 % (60.0-85.0)
[2022-11-04 11:03] LABS: ALT (SGPT) 24 U/L (8-55); AST (SGOT) 27 U/L (5-34); Albumin 3.4 g/dL (3.4-4.8); Alkaline Phosphatase 80 U/L (40-110); Anion Gap 14 mmol/L (10-20); BUN (Urea Nitrogen) 40 mg/dL (8.4-25.7); Bilirubin, Total 0.5 mg/dL (0.2-1.2); Calc. Creatinine Clearance 0 mL/min (70-130); Calcium 8.1 mg/dL (7.8-10.44); Carbon Dioxide 19 mmol/L (23-31); Chloride 104 mmol/L (98-107); Estimated GFR 11; Globulin 3.8 g/dL (2.4-3.5); Glucose 304 mg/dL (80-115); Potassium 4.6 mmol/L (3.5-5.1); Protein, Total 7.2 g/dL (5.8-8.1); Sodium 132 mmol/L (136-145)
[2022-11-04 11:20] LABS: CKMB 5.4 ng/mL (0-6.6)
[2022-11-04] MEDS ORDERED: Nitroglycerin 0.4 MG TAB 1 EACH ONE (11:21)
[2022-11-04] MEDS ORDERED: Furosemide 40 MG/4 ML VIAL ONE (11:46)
[2022-11-04] MEDS ORDERED: Nitroglycerin 2% Ointment 1 INCH/1 GM Packet ONE (11:46)
[2022-11-04 17:54] LABS: SARS-CoV-2 NAA Rapid Test Not Detected (NotDetected)
== END 2022-11-04 14:30 | disposition home or self-care (01) ==
LOC: BURERS 10:01
DX: I13.0 Hypertensive heart and chronic kidney disease with heart failure and stage 1 through stage 4 chronic kidney disease, or unspecified chronic kidney disease (principal); E11.22 Type 2 diabetes mellitus with diabetic chronic kidney disease; N18.9 Chronic kidney disease, unspecified; I50.9 Heart failure, unspecified; N17.9 Acute kidney failure, unspecified; Z87.891 Personal history of nicotine dependence; Z79.899 Other long term (current) drug therapy; Z79.84 Long term (current) use of oral hypoglycemic drugs; Z79.4 Long term (current) use of insulin; Z20.822 Contact with and (suspected) exposure to COVID-19
CPT/HCPCS: 36415; 71045; 80053; 82330; 82435; 82553; 82803; 83605; 83880; 84132; 84295; 84484; 85014; 85025; 93005; 96374; J1940; J7620

== ENCOUNTER 2023-10-28 05:18 | Emergency (ER) | payer MEDICARE | END 2023-10-28 05:55 | disposition home or self-care (01) | LOC: BURERS 05:18 | DX: L29.9 Pruritus, unspecified (principal); I13.0 Hypertensive heart and chronic kidney disease with heart failure and stage 1 through stage 4 chronic kidney disease, or unspecified chronic kidney disease; E11.22 Type 2 diabetes mellitus with diabetic chronic kidney disease; I50.9 Heart failure, unspecified; N18.6 End stage renal disease; Z99.2 Dependence on renal dialysis; Z87.891 Personal history of nicotine dependence | CPT/HCPCS: 99282 ==

== ENCOUNTER 2024-05-10 14:42 | Emergency (ER) | payer MEDICARE | END 2024-05-10 15:36 | disposition home or self-care (01) | LOC: BURERS 14:42 | DX: E11.9 Type 2 diabetes mellitus without complications (principal); I11.0 Hypertensive heart disease with heart failure; I50.9 Heart failure, unspecified; Z76.0 Encounter for issue of repeat prescription; Z87.891 Personal history of nicotine dependence; Z99.2 Dependence on renal dialysis | CPT/HCPCS: 36416; 99281 ==

== ENCOUNTER 2024-08-08 10:10 | Emergency (ER) | payer MEDICARE ==
[2024-08-08] MEDS ORDERED: Mineral Oil ENEMA ONE (12:32)
== END 2024-08-08 15:39 | disposition home or self-care (01) ==
LOC: BURERS 10:10
DX: K59.00 Constipation, unspecified (principal); Z45.2 Encounter for adjustment and management of vascular access device; E11.9 Type 2 diabetes mellitus without complications; I11.0 Hypertensive heart disease with heart failure; I50.9 Heart failure, unspecified; Z87.891 Personal history of nicotine dependence
CPT/HCPCS: 74176

== ENCOUNTER 2025-08-11 14:04 | Emergency (ER) | payer MEDICARE | END 2025-08-11 15:06 | disposition home or self-care (01) | LOC: BURERS 14:04 | DX: S82.831A Other fracture of upper and lower end of right fibula, initial encounter for closed fracture (principal); I13.2 Hypertensive heart and chronic kidney disease with heart failure and with stage 5 chronic kidney disease, or end stage renal disease; I50.9 Heart failure, unspecified; N18.6 End stage renal disease; E11.22 Type 2 diabetes mellitus with diabetic chronic kidney disease; W18.30XA Fall on same level, unspecified, initial encounter; Z99.2 Dependence on renal dialysis; Z87.891 Personal history of nicotine dependence | CPT/HCPCS: 99284 ==

== ENCOUNTER 2025-08-28 11:58 | Emergency (ER) | payer MEDICARE | END 2025-08-28 13:22 | disposition home or self-care (01) | LOC: BURERS 11:58 | DX: J06.9 Acute upper respiratory infection, unspecified (principal); I12.0 Hypertensive chronic kidney disease with stage 5 chronic kidney disease or end stage renal disease; N18.6 End stage renal disease; E11.22 Type 2 diabetes mellitus with diabetic chronic kidney disease; Z99.2 Dependence on renal dialysis; Z87.891 Personal history of nicotine dependence | CPT/HCPCS: 71045; 87428 ==